=== PATIENT | female | born 1945 | race Hispanic/Latino ===

== ENCOUNTER → 2019-10-20 | Day surgery (SDC) | payer MEDICARE ==
[~2019-10-20] MED LIST: ACETAMINOPHEN650 M1 PO; ACIDOPHILUS1 EAC1 PO; ALENDRONATE SOD70 MG PO; BOOST BREEZE237 ML PO; CEFAZOLIN SOD 1 GM/NS 50ML 50 ML IV ONE; DEXAMETHASONE SOD PHOS INJ 4 MG/ML VIAL ONE; DICYCLOMINE HCL20 MG PO; DOCUSATE SODIU100 MG PO; FENTANYL CITRATE/PF 100MCG/2 ML INJ ONE; GLUCAGON HCL1 MG IM; GLUCOSE15 GM/59 M PO; HUMALOG100 UNIT/3 SC; HYDRALAZIN20 MG/1 ML IV; HYDRALAZINE HCL 20 MG/ML VIAL ONE; HYDROMORPHONE 1MG/1ML INJ ONE; IOPAMIDOL 300MG/ML 50ML INFUS..BTL IV ONE; LEVOTHYROXINE50 MCG PO; LIDOCAINE HCL 2% LOCAL INJ 5 ML SDV VIAL INJ ONE; LIPIDS IV; LOPERAMIDE2 MG PO; MAGNESIUM4 MEQ/1 M1 IV; MORPHINE S30 MG/30 M IVP; MORPHINE SULFATE INJ 4 MG/ML INJ 1ML ONE; NORCO 5-325 TA1 EACH PO; ONDANSETRON HCL INJ 2MG/ML 2ML 2 MG/ML VIAL ONE; ONDANSETRON2 MG/1 ML IV; POTASSIUM CHLO10 ME1 PO; PROPOFOL IV EMULSION 10 MG/ML 20 ML VIAL ONE; SEVOFLURANE INHAL SOLN 250 ML PEN BTL ONE; SIMETHICONE80 MG PO; TPN IV; VITAMIN D250000 UNIT PO; ZOLPIDEM TARTRAT5 MG PO; ZOSYN 3.373.375 GM/5 IVP
--- OUTSIDE RECORDS SUMMARY | 2019-10-20 08:46 | XMS REPORT ---
Author Author [facility] Address Unknown Phone Unavailable Care Team Providers Care Dethistler Operator Name Role Phone Unavailable Unavailable Payers Payer Name Policy Type Policy Number Effective Date Expiration Date Problems This patient has no known problems. Allergies, Adverse Reactions, Alerts Allergy Name Allergy Type Status Severity Reaction(s) Onset Date Inactive Date Treating Clinician Comments No Known Allergies DA Active U 2011-10-12 00:00:00 Medications This patient has no known medications. Encounters Start Date/Time End Date/Time Encounter Type Admission Type Attending Clinicians Care Facility Care Department Encounter ID 2019-09-12 22:28:00 2019-09-12 16:33:00 Inpatient E [id number] Results Test Description Test Time Test Comments Text Results Atomic Results Result Comments BLADDER,BIOPSY 2019-06-27 14:53:00 RUN DATE: 06/27/19 [facility] PAGE 1 RUN TIME: 1453 Specimen Inquiry RUN USER: INTERFACE PATIENT: BURAK ERICKSON LOC: JACKIE U #: [id number] AGE/SX: 74/F ROOM: RE06/25/19REG DR: Noe Peterson : 43 BED: DIS: STATUS: [facility] TLOC: SPEC #: [id number] RECD: 06/25/19 STATUS: DAVID PERRY #: [id number] SHAMEKA: 06/25/19- [facility] DR: Noe Peterson ENTERED: 06/25/19 SP TYPE: BX BLAD OTHR DR: Tito Weir MD ORDERED: [place]OSS [place]: [place] [id number] [place] [address] [email or web address] Noe Peterson [address] [place] [address] [address] [place], [place] [id number] MARKERS: INTRADEPARTMENTAL CONSULT PROCEDURES: GROSS (06/27/19) TISSUES: 1. URINARY BLADDER, NOS - RIGHT LATERAL WALL 2. URINARY BLADDER, NOS - LEFT LATERAL WALL 3. URINARY BLADDER, NOS - POSTERIOR WALL CLINICAL HISTORY COLLECTION DATE: 06/25/19 COMMENT The sections of the first specimen demonstate subtle undulations and papillary change which lacks definitive features of papillary neoplasm. The urothelium is only a few cells thick and does not demonstate significant atypia. Clinical correlation is recommended. Intradepartmental consultation: RRB. FINAL DIAGNOSIS Right lateral bladder wall, biopsy: UROTHELIUM WITH SUBTLE PAPILLARY ARCHITECTURE (SEE COMMENT) Left lateral bladder wall, biopsy: MILD CHRONIC INFLAMMATION, BLADDER MUCOSA CONTINUED ON NEXT PAGE RUN DATE: 06/27/19 [facility] PAGE 2 RUN TIME: 3 Specimen Inquiry RUN USER: INTERFACE SPEC #: [id number] PATIENT: BURAK ERICKSON #[id number] (Continued) FINAL DIAGNOSIS (Continued) NEGATIVE FOR MALIGNANCY Posterior bladder wall, biopsy: MINIMAL CHRONIC INFLAMMATION, BLADDER MUCOSA ATTACHED SMOOTH MUSCLE WALL NEGATIVE FOR MALIGNANCY [facility]/leanne D [id number] MACROSCOPIC The first specimen is received in formalin, labeled with the patient's name, identified as "right lateral wall", and consists of two clarke biopsy tissue measuring 0.2 and 0.3 cm, submitted as (1). The second specimen is received in formalin, labeled with the patient's name, identified as "left lateral wall", and consists of two clarke biopsy tissue measuring 0.3 cm, submitted as (2). The third specimen is received in formalin, labeled with the patient's name, identified as "posterior wall", and consists of clarke biopsy tissue measuring 0.4 cm, submitted as (3). GROSS PERFORMED AT [facility] [address] [place] [address] (P)[phone] MICROSCOPIC All of the stains, including any controls performed, stain appropriately. MICROSCOPIC PERFORMED AT [facility] [address] [place] [address] (P)[phone] CONTINUED ON NEXT PAGE RUN DATE: 06/27/19 [facility] PAGE 3 RUN TIME: 1453 Specimen Inquiry RUN USER: INTERFACE SPEC #: [id number] PATIENT: BURAK ERICKSON #[id number] (Continued)--------- PERFORMING SITE Diagnosis performed at: [facility] [address] [facility], [place] [phone] Signed SIGNATURE ON FILE Babita Perez MD 06/27/19 1453 END OF REPORT BASIC METABOLIC PANEL 2019-06-19 13:43:00 SODIUM (test code=NA) 140 mmol/L 136-145 POTASSIUM (test code=K) 3.7 mmol/L 3.5-5.1 CHLORIDE (test code=CL) 105.0 mmol/L 98-107 CARBON DIOXIDE (test code=CO2) 28.0 mmol/L 21-32 ANION GAP (test code=GAP) 10.7 10-20 GLUCOSE (test code=GLU) 108 mg/dL 74-106 BLOOD UREA NITROGEN (test code=BUN) 30 mg/dL 7-18 GLOMERULAR FILTRATION RATE (test code=GFR) 40 mL/min >=60 Estimated GFR by using Modified MDRD formula.Chronic kidney disease is defined as either kidney damageor GFR <60 mL/min/1.73 m2 for >3 months. CREATININE (test code=CREAT) 1.30 mg/dL 0.55-1.02 Note change in reference range due to change in reagent. BUN/CREATININE RATIO (test code=BUN/CREA) 22.4 10-20 CALCIUM (test code=CA) 9.8 mg/dL 8.5-10.1 BASIC METABOLIC [id number] 13:32:00* Test Item Value Reference Range Comments SODIUM (test code=NA) 140 mmol/L 136-145 POTASSIUM (test code=K) 3.7 mmol/L 3.5-5.1 CHLORIDE (test code=CL) 105.0 mmol/L 98-107 CARBON DIOXIDE (test code=CO2) mmol/L 21-32 ANION GAP (test code=GAP) 10-20 GLUCOSE (test code=GLU) mg/dL 74-106 BLOOD UREA NITROGEN (test code=BUN) mg/dL 7-18 GLOMERULAR FILTRATION RATE (test code=GFR) mL/min >=60 CREATININE (test code=CREAT) mg/dL 0.55-1.02 BUN/CREATININE RATIO (test code=BUN/CREA) 10-20 CALCIUM (test code=CA) mg/dL 8.5-10.1 CBC W/AUTO [id number] 12:45:00* Test Item Value Reference Range Comments WHITE BLOOD CELL (test code=WBC) 7.7 K/mm3 4.5-12.5 RED BLOOD CELL (test code=RBC) 4.24 mill/mm3 3.7-5.2 HEMOGLOBIN (test code=HGB) 12.1 gram/dL 11.5-15.5 HEMATOCRIT (test code=HCT) 37.5 % 36.0-46.0 MEAN CELL VOLUME (test code=MCV) 88.4 fL 80-98 MEAN CELL HGB (test code=MCH) 28.5 picogram 27.0-33.0 MEAN CELL HGB CONCETRATION (test code=MCHC) 32.3 gram/dL 33.0-36.0 RED CELL DISTRIBUTION WIDTH (test code=RDW) 13.2 % 11.6-16.2 RED CELL DISTRIBUTION WIDTH SD (test code=RDW-SD) 42.8 fL 37.0-51.0 PLATELET COUNT (test code=PLT) 230 K/mm3 150-450 MEAN PLATELET VOLUME (test code=MPV) 10.7 fL 6.7-11.0 NEUTROPHIL % (test code=NT%) 68.8 % 39.0-69.0 IMMATURE GRANULOCYTE % (test code=IG%) 0.5 % 0.0-5.0 LYMPHOCYTE % (test code=LY%) 21.7 % 25.0-55.0 MONOCYTE % (test code=MO%) 6.1 % 0.0-10.0 EOSINOPHIL % (test code=EO%) 2.1 % 0.0-5.0 BASOPHIL % (test code=BA%) 0.8 % 0.0-1.0 NUCLEATED RBC % (test code=NRBC%) 0.0 % 0-0 NEUTROPHIL # (test code=NT#) 5.26 K/mm3 1.8-7.7 IMMATURE GRANULOCYTE # (test code=IG#) 0.04 x10 3/uL 0-0.03 LYMPHOCYTE # (test code=LY#) 1.66 K/mm3 1.0-5.0 MONOCYTE # (test code=MO#) 0.47 K/mm3 0-0.8 EOSINOPHIL # (test code=EO#) 0.16 K/mm3 0.0-0.5 BASOPHIL # (test code=BA#) 0.06 K/mm3 0.0-0.2 NUCLEATED RBC # (test code=NRBC#) 0.00 K/mm3 0.0-0.1 MANUAL DIFF REQUIRED (test code=MDIFF) NO - XR CHEST 2 [id number] 12:27:00 FAX: Tito Honeycutt MD [phone] Morse: O St: PRE FAX: Noe Steinberg [phone] Name: BURAK ERICKSON [facility] : 1945 Age/S: 74/F [address] [facility] Unit #: [id number] Loc: [place] [address] Phys: Noe Peterson Acct: [id number] Dis Date: Status: PRE SDC PHONE #: [phone] Exam Date: 06/19/2019 1203 FAX #: [phone] Reason: PRE OP EXAMS: CPT CODE: [id number] XR CHEST 2 V 48716 HISTORY: Preop. COMPARISON: October 03, 2011. AP and lateral view of the chest: No acute infiltrates, effusion or congestion. Lung scarring. Cardiac and mediastinal silhouette are normal. Axillary clips on the right. IMPRESSION: No acute infiltrates, effusion or congestion. at 1227 Reported and signed by: Roger Mcdonald M.D. CC: Tito Weir M.D.; Noe Peterson M.D. Technologist: RUDDY Fletcher) Trnscrd Date/Time/By: 06/19/2019 (9416) : By: [email or web address] Orig Print D/T: S: 06/19/2019 (7590) PAGE 1 Signed Report
--- OUTSIDE RECORDS SUMMARY | 2019-10-20 08:46 | XMS REPORT ---
Author Organization Unknown Address [address] [place] [id number] Phone [phone] Care Team Providers Care Core Finisher Name Role Phone FRANKLIN "MARILYN WEIR MD 3 [phone] Allergies Code Code System Name Reaction Severity Status Onset NKDA Medications Name Status Start Date Stop Date acetaminophen 300 mg-codeine 30 mg tablet Completed 03/05/2017 alendronate 70 mg tablet Active Not available amoxicillin 500 mg capsule Completed 10/03/2016 amoxicillin 875 mg-potassium clavulanate 125 mg tablet Completed 07/05/2017 azithromycin 250 mg tablet Completed 07/12/2017 azithromycin 500 mg tablet Take 1 tablet every day by oral route for 7 days. Completed 07/12/2017 baclofen 20 mg tablet Completed 10/03/2016 benazepril 10 mg tablet Completed 02/01/2017 benazepril 10 mg-hydrochlorothiazide 12.5 mg tablet Active Not available calcitriol 0.25 mcg capsule Take 1 capsule every day by oral route for 90 days. Active Not available ceftriaxone 500 mg solution for injection Take 250 mg by injection route. Completed 06/01/2017 celecoxib 200 mg capsule Active Not available chlorhexidine gluconate 0.12 % mouthwash Completed 10/31/2016 ciprofloxacin 500 mg tablet Completed 01/04/2017 colchicine 0.6 mg tablet take 2 on first day then one daily Active Not available Combivent Respimat 20 mcg-100 mcg/actuation solution for inhalation Completed 07/05/2017 Depo-Medrol 80 mg/mL suspension for injection injected 1 ml. deep IM, once, as a single dose Completed 08/06/2017 diazepam 2 mg tablet Completed 10/31/2016 diphenoxylate-atropine 2.5 mg-0.025 mg tablet Active Not available ferrous sulfate 325 mg (65 mg iron) tablet Take 1 tablet every day by oral route for 90 days. Active Not available hydrocodone 10 mg-acetaminophen 325 mg tablet Active Not available levothyroxine 50 mcg tablet Active Not available lidocaine-prilocaine 2.5 %-2.5 % topical cream Active Not available Medrol (Markel) 4 mg tablets in a dose pack take as directed on the pack; do not skip any doses; take until all finished. Active Not available montelukast 10 mg tablet Completed 07/05/2017 mupirocin 2 % topical ointment Completed 01/31/2018 nitrofurantoin monohydrate/macrocrystals 100 mg capsule Completed 01/04/2017 Pyridium 200 mg tablet Take 1 tablet twice a day by oral route as needed for 3 days. Completed 06/01/2017 rosuvastatin 20 mg tablet Active Not available sulfamethoxazole 800 mg-trimethoprim 160 mg tablet Completed 01/04/2017 trazodone 50 mg tablet Completed 10/31/2016 triamcinolone acetonide 0.1 % lotion Completed 02/01/2017 valacyclovir 500 mg tablet Completed 02/01/2017 Vitamin D2 50,000 unit capsule Take 1 capsule every week by oral route for 90 days. Active Not available Xifaxan 550 mg tablet Take 1 tablet twice a day by oral route for 14 days. 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 History Atrophic Vaginitis Unknown 09/03/2015 History Osteoarthritis of Knee Active 09/03/2015 History Pain in Left Knee Active 09/03/2015 History Mononeuropathy Active 09/28/2015 History Subacute and Chronic Vaginitis Unknown 09/28/2015 History Urticaria Unknown 09/28/2015 History Neck Pain Unknown 09/28/2015 History Tension-type Headache Active 04/17/2016 History Disorder of Bone Active 04/17/2016 History 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 (Scheduling) [address] [place] [address] (Work Place) 02/01/2017 MAMMO, Screening, Bilateral [facility] [address] [place] [address] (Work Place) 05/14/2017 [place], [facility] [address] [place] [address] (Work Place) 05/16/2017 [place], [facility] [address] [place] [address] (Work Place) 06/01/2017 XR, Shoulder [facility] [address] [place] [address] (Work Place) 07/05/2017 XR, Chest, 2 View Information not available Notes: 05/10/2016: L Carotid Endarterectomy; Surgery Date: 2002 Ventral Hernia x 3; Surgery Date: 2009 Ventral Hernia (complication from previous surgery); Surgery Date: 2009 Rupture Colon (Spontaneous), required surgery then as well; Surgery Date: 2006 Vaginal Ca. S/P Surgery, Radiation and Chemo; Surgery Date: 1994 Lab Results Date Name Specimen Result Interpretation Description Value Range Status Address 12/07/2017 TSH, Serum or Plasma Normal Tsh 3.41 mIU/L 0.40-4.50 mIU/L [facility]: [address] [place] [address] 12/07/2017 Vitamin D, 25-Hydroxy, Total, Serum Low Vitamin D,25-Oh,total,ia 23 NG/mL 30-100 NG/mL Final [facility]: [address] [place] [address] 12/07/2017 T4, Free, Serum Normal T4, Free 1.4 NG/dL 0.8-1.8 NG/dL Final [facility]: [address] 12/07/2017 CBC W/ Auto Diff Normal White Blood Cell Count 8.1 thousand/uL 3.8-10.8 thousand/uL [facility]: [address] [place] [address] Normal Red Blood Cell Count 3.94 million/uL 3.80-5.10 million/uL [facility]: [address] Anguiano, Brian Low Hemoglobin 11.2 g/dL 11.7-15.5 g/dL Final [facility]: [address] Brian Ortiz Low Hematocrit 34.5 % 35.0-45.0 % Final [facility]: [address] Brian Ortiz Normal Mcv 87.6 fL 80.0-100.0 fL Final [facility]: [address] Je[address] Anguiano Torres Normal Mch 28.4 pg 27.0-33.0 pg Final [facility]: [address] Anguiano, [place] Normal Mchc 32.5 g/dL 32.0-36.0 g/dL Final [facility]: [address]055 Brian Ortiz Normal Rdw 12.7 % 11.0-15.0 % Final [facility]: [address]055 Brian Ortiz Normal Platelet Count 265 thousand/uL 140-400 thousand/uL Final [facility]: [address]055 Brian Ortiz Normal Mpv 10.7 fL 7.5-12.5 fL Final [facility]: [address]055 Brian Ortiz Normal Absolute Neutrophils 5711 cells/uL 7917-7098 cells/uL Final [facility]: [address]055 Brian Ortiz Normal Absolute Lymphocytes 1742 cells/uL 850-3900 cells/uL Final [facility]: [address] Jeannie Anguiano Torres Normal Absolute Monocytes 462 cells/uL 200-950 cells/uL Final [facility]: [address]055 Brian Ortiz Normal Absolute Eosinophils 138 cells/uL 15-500 cells/uL Final [facility]: [address] Jeannie Anguiano Torres Normal Absolute Basophils 49 cells/uL 0-200 cells/uL Final [facility]: [address]055 Brian Ortiz Normal Neutrophils 70.5 % Final [facility]: [address]055 Brian Ortiz Normal Lymphocytes 21.5 % Final [facility]: [address] Je[address] Anguiano Torres Normal Monocytes 5.7 % Final [facility]: [address] Jeannie Anguiano Torres Normal Eosinophils 1.7 % Final [facility]: [address]055 Jeannie Anguiano [place] Normal Basophils 0.6 % Final [facility]: [address] 12/07/2017 Lipid Panel, Serum Normal Cholesterol, Total 172 mg/dL <200 mg/dL Final [facility]: [address] Low HDL Cholesterol 48 mg/dL >50 mg/dL Final [facility]: [address] High Triglycerides 161 mg/dL <150 mg/dL Final [facility]: [address] Normal LDL-cholesterol 97 mg/dL (calc) Final [facility]: [address] Normal Chol/hdlc Ratio 3.6 (calc) <5.0 (calc) Final [facility]: [address] Normal Non HDL Cholesterol 124 mg/dL (calc) <130 mg/dL (calc) Final [facility]: [address] 12/07/2017 Phosphorus, Serum or Plasma Normal Phosphate (as Phosphorus) 3.9 mg/dL 2.1-4.3 mg/dL Final [facility]: [address] 12/07/2017 Magnesium, Serum or Plasma Low Magnesium 1.1 mg/dL 1.5-2.5 mg/dL Final [facility]: [address] 12/07/2017 CMP, Serum or Plasma Low eGFR Non-afr. [place] 47 mL/min/1.73m2 > or=60 mL/min/1.73m2 Final [facility]: [address] Low eGFR 55 mL/min/1.73m2 > or=60 mL/min/1.73m2 Final [facility]: [address] Normal BUN/creatinine Ratio 22 (calc) 6-22 (calc) Final [facility]: [address] Normal Sodium 140 mmol/L 135-146 mmol/L Final [facility]: [address] Normal Potassium 3.9 mmol/L 3.5-5.3 mmol/L Final [facility]: [address] Normal Chloride 106 mmol/L 98-110 mmol/L Final [facility]: [address] Normal Carbon Dioxide 23 mmol/L 20-31 mmol/L Final [facility]: [address] Low Calcium 8.1 mg/dL 8.6-10.4 mg/dL Final [facility]: [address] Normal Protein, Total 6.3 g/dL 6.1-8.1 g/dL Final [facility]: [address] Normal Albumin 3.7 g/dL 3.6-5.1 g/dL Final [facility]: [address] Normal Globulin 2.6 g/dL (calc) 1.9-3.7 g/dL (calc) Final [facility]: [address] Normal Albumin/globulin Ratio 1.4 (calc) 1.0-2.5 (calc) Final [facility]: [address] Normal Bilirubin, Total 0.5 mg/dL 0.2-1.2 mg/dL Final [facility]: [address] Normal Alkaline Phosphatase 66 U/L 33-130 U/L Final [facility]: [address] Normal Ast 13 U/L 10-35 U/L Final [facility]: [address] Normal Alt 9 U/L 6-29 U/L Final [facility]: [address] Normal Glucose 96 mg/dL 65-99 mg/dL Final [facility]: [address] Normal Urea Nitrogen (BUN) 25 mg/dL 7-25 mg/dL Final [facility]: [address] High Creatinine 1.15 mg/dL 0.60-0.93 mg/dL Final [facility]: [address] 12/07/2017 PTH (Parathyroid Hormone), Intact, Serum or Plasma High Parathyroid Hormone, Intact 190 pg/mL 14-64 pg/mL Final [facility]: 55 Je[address] 09/03/2017 Vitamin D, 25-Hydroxy, Total, Serum Low Vitamin D,25-Oh,total,ia 14 NG/mL 30-100 NG/mL Final [facility]: [address] 09/03/2017 Lipid Panel, Serum Normal Cholesterol, Total 173 mg/dL <200 mg/dL Final [facility]: [address] Normal HDL Cholesterol 51 mg/dL >50 mg/dL Final [facility]: [address] High Triglycerides 167 mg/dL <150 mg/dL Final [facility]: [address] Normal LDL-cholesterol 95 mg/dL (calc) Final [facility]: [address] Normal Chol/hdlc Ratio 3.4 (calc) <5.0 (calc) Final [facility]: [address] Normal Non HDL Cholesterol 122 mg/dL (calc) <130 mg/dL (calc) Final [facility]: [address] 09/03/2017 CMP, Serum or Plasma Normal Glucose 92 mg/dL 65-99 mg/dL Final [facility]: [address] Normal Urea Nitrogen (BUN) 22 mg/dL 7-25 mg/dL Final [facility]: [address] High Creatinine 1.01 mg/dL 0.60-0.93 mg/dL Final [facility]: [address] Low eGFR Non-afr. [place] 55 mL/min/1.73m2 > or=60 mL/min/1.73m2 Final [facility]: [address] Normal eGFR 64 mL/min/1.73m2 > or=60 mL/min/1.73m2 Final [facility]: [address] Normal BUN/creatinine Ratio 22 (calc) 6-22 (calc) Final [facility]: [address] Normal Sodium 142 mmol/L 135-146 mmol/L Final [facility]: [address] Normal Potassium 4.1 mmol/L 3.5-5.3 mmol/L Final [facility]: [address]ar[address] [place] [address] Normal Chloride 107 mmol/L 98-110 mmol/L Final [facility]: [address] Navarre[address] [place] [address] Normal Carbon Dioxide 27 mmol/L 20-31 mmol/L Final [facility]: [address] Vanessa [address] Normal Calcium 8.7 mg/dL 8.6-10.4 mg/dL Final [facility]: [address] Normal Protein, Total 6.1 g/dL 6.1-8.1 g/dL Final [facility]: [address] Normal Albumin 3.7 g/dL 3.6-5.1 g/dL Final [facility]: 55 [address] Normal Globulin 2.4 g/dL (calc) 1.9-3.7 g/dL (calc) Final [facility]: [address] Normal Albumin/globulin Ratio 1.5 (calc) 1.0-2.5 (calc) Final [facility]: 55 [address] Normal Bilirubin, Total 0.7 mg/dL 0.2-1.2 mg/dL Final [facility]: [address] Vanessa [address] Normal Alkaline Phosphatase 61 U/L 33-130 U/L Final [facility]: 55 [address] Normal Ast 14 U/L 10-35 U/L Final [facility]: [address] Normal Alt 10 U/L 6-29 U/L Final [facility]: [address]ans[address] 09/03/2017 TSH, Serum or Plasma Normal Tsh 2.05 mIU/L 0.40-4.50 mIU/L Final [facility]: [address] Van[address] 09/03/2017 CBC W/ Auto Diff Normal White Blood Cell Count 6.2 thousand/uL 3.8-10.8 thousand/uL Final [facility]: 55 Je[address] dl [address] Low Red Blood Cell Count 3.63 million/uL 3.80-5.10 million/uL Final [facility]: [address] Anguiano, Brian Low Hemoglobin 10.6 g/dL 11.7-15.5 g/dL Final [facility]: [address] Brian Ortiz Low Hematocrit 33.1 % 35.0-45.0 % Final [facility]: [address]055 Brian Ortiz Normal Mcv 91.2 fL 80.0-100.0 fL Final [facility]: [address] Anugiano Torres Normal Mch 29.2 pg 27.0-33.0 pg Final [facility]: [address] Anguiano, [place] Normal Mchc 32.0 g/dL 32.0-36.0 g/dL Final [facility]: [address] Angu[address] Torres Normal Rdw 13.4 % 11.0-15.0 % Final [facility]: [address] Brian Ortiz Normal Platelet Count 231 thousand/uL 140-400 thousand/uL Final [facility]: [address] Je[address] Anguiano Torres Normal Mpv 10.6 fL 7.5-12.5 fL Final [facility]: [address]042 Jeannie Anguiano, Brian Normal Absolute Neutrophils 4309 cells/uL 3341-3897 cells/uL Final [facility]: [address]055 Brian Ortiz Normal Absolute Lymphocytes 1321 cells/uL 850-3900 cells/uL Final [facility]: [address] Je[address] Angu[address] Torres Normal Absolute Monocytes 397 cells/uL 200-950 cells/uL Final [facility]: [address] Je[address] Anguiano [place] Normal Absolute Eosinophils 136 cells/uL 15-500 cells/uL Final [facility]: 9076 Jeannie Anguiano, [place] Normal Absolute Basophils 37 cells/uL 0-200 cells/uL Final [facility]: [address] Je[address] Anguiano [place] Normal Neutrophils 69.5 % Final [facility]: [address] Angu[address] Torres Normal Lymphocytes 21.3 % Final [facility]: [address]055 Jeannie Anguiano, [place] Normal Monocytes 6.4 % Final [facility]: [address] Je[address] Anguiano [place] Normal Eosinophils 2.2 % Final [facility]: [address] Je[address] Anguiano [place] Normal Basophils 0.6 % Final [facility]: [address] Jeannie Anguiano, [place] 09/03/2017 T4, Free, Serum Normal T4, Free 1.3 NG/dL 0.8-1.8 NG/dL Final [facility] [address] [facility] PTH (Parathyroid Hormone), Intact, Serum or Plasma High Parathyroid Hormone, Intact 132 pg/mL 14-64 pg/mL Final [facility]: [address] dl Navarrete [facility], [place] 05/14/2017 Culture, Urine Culture, Urine, Routine Final [facility]: [address] Navar[address]te [address] [place] [address] 05/03/2017 CBC W/ Auto Diff Normal White Blood Cell Count 5.7 thousand/uL 3.8-10.8 thousand/uL Final [facility]: [address] Je[address] Vanessa [address] Low Red Blood Cell Count 3.73 million/uL 3.80-5.10 million/uL Final [facility]: [address] Low Hemoglobin 11.0 g/dL 11.7-15.5 g/dL Final [facility]: [address] Van[address] Low Hematocrit 33.1 % 35.0-45.0 % Final [facility]: [address] Navar[address]te [address] [place] [address] Normal Mcv 88.9 fL 80.0-100.0 fL Final [facility]: [address] Van[address] Normal Mch 29.6 pg 27.0-33.0 pg Final [facility]: [address] Van[address] Normal Mchc 33.3 g/dL 32.0-36.0 g/dL Final [facility]: [address] Van[address] Normal Rdw 14.4 % 11.0-15.0 % Final [facility]: 9055 [facility] Platelet Count 214 thousand/uL 140-400 thousand/uL Final [facility]: [address] Van[address] Normal Mpv 8.9 fL 7.5-12.5 fL Final [facility]: [address] Van[address] Normal Absolute Neutrophils 4138 cells/uL 6094-2727 cells/uL Final [facility]: [address] Vanessa [address] Normal Absolute Lymphocytes 1037 cells/uL 850-3900 cells/uL Final [facility]: [address] Jeannie Vanessa Landon Arline [place] Normal Absolute Monocytes 353 cells/uL 200-950 cells/uL Final [facility]: [address] Van[address] Normal Absolute Eosinophils 137 cells/uL 15-500 cells/uL Final [facility]: [address] Vanessa [address] Normal Absolute Basophils 34 cells/uL 0-200 cells/uL Final [facility]: [address] Vanessa [place] [address], [place] Normal Neutrophils 72.6 % Final [facility]: [address] Je[address] Vanessa [place] [address], [place] Normal Lymphocytes 18.2 % Final [facility]: [address] Je[address] Vanessa [place] [address], [place] Normal Monocytes 6.2 % Final [facility]: [address] [place] [address], [place] Normal Eosinophils 2.4 % Final [facility]: [address] Normal Basophils 0.6 % Final [facility]: [address] 05/03/2017 Lipid Panel, Serum Normal Cholesterol, Total 166 mg/dL 125- 200 mg/dL Final [facility]: [address] Low HDL Cholesterol 45 mg/dL > or=46 mg/dL Final [facility]: [address] High Triglycerides 150 mg/dL <150 mg/dL Final [facility]: [address] Normal LDL-cholesterol 91 mg/dL (calc) <130 mg/dL (calc) Final [facility]: [address] Normal Chol/hdlc Ratio 3.7 (calc) < or=5.0 (calc) Final [facility]: [address] Normal Non HDL Cholesterol 121 mg/dL (calc) Final [facility]: [address] 05/03/2017 T4, Total, Serum Normal T4 (Thyroxine), Total 8.4 mcg/dL 4.5-12.0 mcg/dL Final [facility]: [address] 05/03/2017 Rf (Rheumatoid Factor), Serum Normal Rheumatoid Factor 10 IU/mL <14 IU/mL Final [facility]: [address]055 [facility] TSH, Serum or Plasma Normal Tsh 2.24 mIU/L 0.40-4.50 mIU/L Final [facility]: 9055 [facility] 05/03/2017 CMP, Serum or Plasma Normal Glucose 98 mg/dL 65-99 mg/dL Final [facility]: [address] Normal Urea Nitrogen (BUN) 19 mg/dL 7-25 mg/dL Final [facility]: [address] Van[address] High Creatinine 1.03 mg/dL 0.60-0.93 mg/dL Final [facility]: [address] Van[address] Low eGFR Non-afr. [place] 54 mL/min/1.73m2 > or=60 mL/min/1.73m2 Final [facility]: [address] Normal eGFR 62 mL/min/1.73m2 > or=60 mL/min/1.73m2 Final [facility]: [address] Van[address] Normal BUN/creatinine Ratio 18 (calc) 6-22 (calc) Final [facility]: [address] Normal Sodium 140 mmol/L 135-146 mmol/L Final [facility]: [address] Van[address] Normal Potassium 4.1 mmol/L 3.5-5.3 mmol/L Final [facility]: [address] Vanessa [address] Normal Chloride 104 mmol/L 98-110 mmol/L Final [facility]: [address] Vanessa [address] Normal Carbon Dioxide 27 mmol/L 20-31 mmol/L Final [facility]: [address] Normal Calcium 9.1 mg/dL 8.6-10.4 mg/dL Final [facility]: [address] Van[address] Normal Protein, Total 6.1 g/dL 6.1-8.1 g/dL Final [facility]: [address] Normal Albumin 3.7 g/dL 3.6-5.1 g/dL Final [facility]: [address] Normal Globulin 2.4 g/dL (calc) 1.9-3.7 g/dL (calc) Final [facility]: [address] Normal Albumin/globulin Ratio 1.5 (calc) 1.0-2.5 (calc) Final [facility]: [address] Normal Bilirubin, Total 0.4 mg/dL 0.2-1.2 mg/dL Final [facility]: [address] Normal Alkaline Phosphatase 75 U/L 33-130 U/L Final [facility]: [address] Normal Ast 15 U/L 10-35 U/L Final [facility]: [address] Normal Alt 11 U/L 6-29 U/L Final [facility]: [address] [place] [address], [place] 05/03/2017 GIANFRANCO (Antinuclear Antibodies) Igg, Ifa, Serum Normal GIANFRANCO Screen, Ifa negative negative Final [facility]: [address] [place] [address], [place] 03/07/2017 Culture, Urine Culture, Urine, Routine Final [facility]: [address] [address], [place] 03/05/2017 Culture, Urine Culture, Urine, Routine Final [facility] Lab: [address] [facility], [place] 02/01/2017 Lipid Panel, Serum Normal Cholesterol, Total 177 mg/dL 125- 200 mg/dL Final [facility]: [address] [facility], [place] Low HDL Cholesterol 43 mg/dL > or=46 mg/dL [facility] [facility] Lab: [address] [facility], [place] High Triglycerides 279 mg/dL <150 mg/dL Final [facility] Lab: [address] [facility], [place] Normal LDL-cholesterol 78 mg/dL (calc) <130 mg/dL (calc) Final [facility] Lab: [address] [facility], [place]ikel Normal Chol/hdlc Ratio 4.1 (calc) < or=5.0 (calc) Final [facility] Lab: [address] [facility], [place]ikel Normal Non HDL Cholesterol 134 mg/dL (calc) Final [facility] Lab: [address] [facility], Maikel 02/01/2017 CMP, Serum or Plasma Normal Glucose 98 mg/dL 65-99 mg/dL Final [facility] Lab: 70 [facility], [place] High Urea Nitrogen (BUN) 26 mg/dL 7-25 mg/dL Final [facility] Lab: 70 [facility], [place] High Creatinine 1.16 mg/dL 0.60-0.93 mg/dL Final [facility] Lab: 70 [facility], [place] Low eGFR Non-afr. [place] 47 mL/min/1.73m2 > or=60 mL/min/1.73m2 Final [facility]: [address] [facility], [place] Low eGFR 54 mL/min/1.73m2 > or=60 mL/min/1.73m2 Final [facility] Lab: [address] [facility], [place] Normal BUN/creatinine Ratio 22 (calc) 6-22 (calc) Final [facility] Lab: 70 [facility], Maikel Normal Sodium 141 mmol/L 135-146 mmol/L Final [facility] Lab: 70 [facility], [place]ikel Normal Potassium 4.1 mmol/L 3.5-5.3 mmol/L Final [facility] Lab: 70 [facility], [place]ikel Normal Chloride 104 mmol/L 98-110 mmol/L Final [facility] Lab: 70 [facility], Maikel Normal Carbon Dioxide 26 mmol/L 20-31 mmol/L Final [facility] Lab: 70 [facility], [place] Low Calcium 8.4 mg/dL 8.6-10.4 mg/dL Final [facility] Lab: 70 [facility], [place]ikel Normal Protein, Total 6.4 g/dL 6.1-8.1 g/dL Final [facility] Lab: 70 [facility], [place] Normal Albumin 3.7 g/dL 3.6-5.1 g/dL Final [facility] Lab: 70 [facility], [place]ikel Normal Globulin 2.7 g/dL (calc) 1.9-3.7 g/dL (calc) Final [facility] Lab: [address] [place] [address], Maikel Normal Albumin/globulin Ratio 1.4 (calc) 1.0-2.5 (calc) Final [facility] Lab: 70 [facility], [place]ikel Normal Bilirubin, Total 0.6 mg/dL 0.2-1.2 mg/dL Final [facility] Lab: 70 [facility], [place] Normal Alkaline Phosphatase 63 U/L 33-130 U/L Final [facility] Lab: 70 [facility], [place] Normal Ast 14 U/L 10-35 U/L Final [facility] Lab: 70 [facility], [place]ikel Normal Alt 10 U/L 6-29 U/L Final [facility] Lab: 70 [facility], [place] 02/01/2017 CBC W/ Auto Diff Normal White Blood Cell Count 5.9 thousand/uL 3.8-10.8 thousand/uL Final [facility] Lab: 70 [facility], [place] Low Red Blood Cell Count 3.78 million/uL 3.80-5.10 million/uL Final [facility] Lab: [address] [place] [address], Maikel Low Hemoglobin 11.1 g/dL 11.7-15.5 g/dL Final [facility] Lab: [address] [place] [address], Maikel Low Hematocrit 32.9 % 35.0-45.0 % Final [facility] Lab: 70 [facility], [place] Normal Mcv 86.9 fL 80.0-100.[address] [facility] Lab: 70 [facility], [place] Normal Mch 29.2 pg 27.0-33.[address] [facility] Lab: [address] [place] [address], Maikel Normal Mchc 33.7 g/dL 32.0-36.0 g/dL Final [facility] Lab: 70 [facility], Maikel Normal Rdw 14.8 % 11.0-15.0 % Final [facility] Lab: 70 [facility], [place] Normal Platelet Count 205 thousand/uL 140-400 thousand/uL Final [facility] Lab: 70 [facility], [place] Normal Mpv 9.1 fL 7.5-12.[address] [facility] Lab: 70 [facility], [place] Normal Absolute Neutrophils 4160 cells/uL 0932-5077 cells/uL Final [facility] Lab: [address], [place] Normal Absolute Lymphocytes 1328 cells/uL 850-3900 cells/uL Final [facility] Lab: [address], [place] Normal Absolute Monocytes 277 cells/uL 200-950 cells/uL Final [facility] Lab: [address], [place] Normal Absolute Eosinophils 100 cells/uL 15-500 cells/uL Final [facility] Lab: [facility] [address], [place] Normal Absolute Basophils 35 cells/uL 0-200 cells/[address]L [facility] Lab: [facility] [address], [place] Normal Neutrophils 70.5 % Final [facility] Lab: [facility] [address], [place] Normal Lymphocytes 22.5 % Final [facility] Lab: [address] [place], [place] [address]t vd, Maikel Normal Monocytes 4.7 % Final [facility] Lab: [facility] [address], [place] Normal Eosinophils 1.7 % Final [facility] Lab: [address] [place] [address], Ma[place] Normal Basophils 0.6 % Final [facility] Lab: [address] [place] [address], Maikel 02/01/2017 T4, Total, Serum Normal T4 (Thyroxine), Total 8.4 mcg/dL 4.5-12.0 mcg/dL Final [facility] Lab: [address] [place] [address], Maikel 02/01/2017 TSH, Serum or Plasma Normal Tsh 2.43 mIU/L 0.40-4.50 mIU/L Final [facility] Lab: [address] [place] [address], Maikel 02/01/2017 HbA1C (Hemoglobin a1C), Blood Normal Hemoglobin a1C 5.5 % of total HGB <5.7 % of total HGB Final [facility] Lab: [address] [place] [address], Maikel 10/16/2016 Culture, Urine Culture, Urine, Routine Final [facility] Lab: [address] [place] [address], Maikel 10/03/2016 Lipid Panel, Serum Normal Cholesterol, Total 167 mg/dL 125- 200 mg/dL Final [facility] Lab: [address] [place] [address], Maikel Low HDL Cholesterol 45 mg/dL > or=46 mg/dL Final [facility] Lab: [address] [place] [address], [place] High Triglycerides 191 mg/dL <150 mg/dL Final [facility] Lab: [address] [place] [address], [place] Normal LDL-cholesterol 84 mg/dL (calc) <130 mg/dL (calc) Final [facility] Lab: [address], [place] Normal Chol/hdlc Ratio 3.7 (calc) < or=5.0 (calc) Final [facility] Lab: [address], [place] Normal Non HDL Cholesterol 122 mg/dL (calc) Final [facility]: [address] [facility], [place] 10/03/2016 CMP, Serum or Plasma High Glucose 100 mg/dL 65-99 mg/dL Final [facility] Lab: [address] [facility], [place] Normal Urea Nitrogen (BUN) 24 mg/dL 7-25 mg/dL Final [facility] Lab: 70 [facility], [place] High Creatinine 1.16 mg/dL 0.60-0.93 mg/dL Final [facility] Lab: [address] [facility], [place] Low eGFR Non-afr. [place] 47 mL/min/1.73m2 > or=60 mL/min/1.73m2 Final [facility] Lab: [address], [place] Low eGFR 54 mL/min/1.73m2 > or=60 mL/min/1.73m2 Final [facility] Lab: [address], [place] Normal BUN/creatinine Ratio 21 (calc) 6-22 (calc) Final [facility] Lab: [address], [place] Normal Sodium 141 mmol/L 135-146 mmol/L Final [facility] Lab: [address], [place] Low Potassium 3.3 mmol/L 3.5-5.3 mmol/L Final [facility] Lab: [address], [place] Normal Chloride 104 mmol/L 98-110 mmol/L Final [facility] Lab: [address], [place] Normal Carbon Dioxide 25 mmol/L 20-31 mmol/L Final [facility] Lab: [address], [place] Normal Calcium 8.7 mg/dL 8.6-10.4 mg/dL Final [facility] Lab: [address] [facility], [place] Normal Protein, Total 6.5 g/dL 6.1-8.1 g/dL Final [facility] Lab: [address], [place] Normal Albumin 3.8 g/dL 3.6-5.1 g/dL Final [facility] Lab: 70 [facility], [place] Normal Globulin 2.7 g/dL (calc) 1.9-3.7 g/dL (calc) Final [facility] Lab: 70 [facility], [place] Normal Albumin/globulin Ratio 1.4 (calc) 1.0-2.5 (calc) Final [facility] Lab: 70 [facility], [place] Normal Bilirubin, Total 0.6 mg/dL 0.2-1.2 mg/dL Final [facility] Lab: [address] [place] [address], [place] Normal Alkaline Phosphatase 75 U/L 33-130 U/L Final [facility] Lab: [address] [place] [address], [place] Normal Ast 13 U/L 10-35 U/L Final [facility] Lab: [address] [place] [address], Maikel Normal Alt 8 U/L 6-29 U/L Final [facility] Lab: [address] [place] [address], Maikel 10/03/2016 T4, Total, Serum Normal T4 (Thyroxine), Total 9.5 mcg/dL 4.5-12.0 mcg/dL Final [facility] Lab: [address] [place] [address], Maikel 10/03/2016 TSH, Serum or Plasma Normal Tsh 2.69 mIU/L 0.40-4.50 mIU/L Final [facility] Lab: [address] [place] [address], Maikel 10/03/2016 HbA1C (Hemoglobin a1C), Blood High Hemoglobin a1C 5.8 % of total HGB <5.7 % of total HGB Final [facility] Lab: [address] [place] [address], Maikel Urinalysis, Dipstick Color Color bloody [facility]: [address], [place] Color Appearance cloudy [facility]: [address], [place] Color Glucose 100 [facility]: [address] [facility] [address], [place] Color Bilirubin negative [facility]: [address], [place] Color Ketones negative [facility]: [address] [facility] [address], [place] Color Specific [place] 1.015 [facility] [place]: [address], [place] Color Blood large [facility] Torres: [address], [place] Color PH 6.0 [facility] Torres: [address], [place] Color Protein 300 [facility] Torres: [address], [place] Color Urobilinogen 1 [facility] Torres: [address], [place] Color Nitrites positive [facility] Torres: [address], [place] Color Leukocytes negative [facility] Torres: [address], [place] Urinalysis, Dipstick Color Glucose negative [facility]: [address], [place] Color Bilirubin small [facility] Torres: [address], [place] Color Ketones negative [facility]: [address], [place] Color Specific [place] 1.025 [facility]: [address], [place] Color Blood large [facility] Torres: [address], [place] Color PH 5.5 [facility] Torres: [address], [place] Color Protein 100 [facility] Torres: [address], [place] Color Urobilinogen 0.2 [facility] Torres: [address], [place] Color Nitrites negative [facility] Torres: [address], [place] Color Leukocytes trace [facility] Torres: [address], [place] Urinalysis, Dipstick Color Color viktoriya [facility] Torres: [address], [place] Color Appearance clear [facility] Torres: [address], [place] Color Glucose 250 [facility] Torres: [address], [place] Color Bilirubin moderate [facility] Torres: [address], [place] Color Ketones trace [facility]: [address], [place] Color Specific [place] 1.015 [facility]: [address], [place] Color Blood trace [facility] Torres: [address], [place] Color PH 5.0 [facility]: [address], [place] Color Protein 300 [facility]: [address] [facility] [address], [place] Color Urobilinogen 8 [facility]: [address] [address], [place] Color Nitrites positive [facility]: [address] [address], [place] Color Leukocytes large [facility]: [address] [place] [address], [place] Past Encounters 03/11/2018 Bursitis of Olecranon of Right Elbow; Gouty Arthropathy SABA Etienne: [address] [address], Ph. 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 01/04/2018 Pain in Left Knee; Vitamin D Deficiency; Hyperparathyroidism Due to Renal Insufficiency; Atherosclerosis TRISTON Chacko: [address] [address], Ph. 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 11/01/2017 Pain in Left Knee TRISTON Chacko: [address] [address], Ph. 10/04/2017 Pain in Left Knee; Disorder of Bone; Immunization; Cellulitis of Buttock RANDY ChackoP: [address] [facility] [address], [place] [address], Ph. 09/03/2017 Pain in Left Knee; Hypothyroidism; Immunization; Hypertensive Heart and Renal Disease; Chronic Kidney Disease Stage 3; Pure Hypercholesterolemia RANDY ChackoP: [address] [place] [address], [place] [address], Ph. 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 07/12/2017 Gout Franklin Weir MD: [address] [place] [address], [place] [address], Ph. 07/05/2017 Follow-up Visit; Acute Bronchitis; Pain in Left Knee; Body Mass Index 30+ - Obesity; Radiation Proctitis; Mononeuropathy; Pure Hypercholesterolemia; Hypothyroidism; History of Malignant Neoplasm of Vagina; Chronic Kidney Disease Stage 3; Hypertensive Heart and Renal Disease Franklin Weir MD: [address] [place] [address], Ph. 06/01/2017 Pain in Left Knee; Shoulder Joint Pain; Blood in Urine; Disorder of Bone; Fall on Same Level from Tripping RANDY ChackoP: [address] [address], Ph. 05/16/2017 Blood in Urine Franklin Weir MD: [address] [address], Ph. 05/14/2017 Dysuria; Acute Urinary Tract Infection; Blood in Urine TRISTON Chacko: [address] [facility], [place] [address], [place] [address], Ph. 05/03/2017 Pain in Left Knee; Hypertensive Heart and Renal Disease; Chronic Kidney Disease Stage 3; Hypothyroidism; Hand Joint Pain TRISTON Chacko: [place] [address] [address], Ph. 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 03/05/2017 Anemia; Hypertensive Heart and Renal Disease; Pain in Left Knee; Blood in Urine; Acute Urinary Tract Infection Nell Bernabe [employer]: [address] [address], Ph. 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 01/04/2017 Pain in Left Knee Nell Bernabe [employer]GRE[employer]ING [employer]: [address] [address], Ph. 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 10/31/2016 Hypertensive Heart and Renal Disease; Pain in Left Knee; Disorder of Bone; Cellulitis of Buttock Nell Bernabe [employer]: [address] [address], Ph. 10/16/2016 Blood in Urine Franklin Weir MD: [id number] [address], Ph. 10/03/2016 Pain in Left Knee; Hypothyroidism; Pure Hypercholesterolemia; Hypertensive Heart Disease; Family History of Diabetes Mellitus Nell BernabeRANDYP: [address] [facility], [address], [place] [address], Ph. 09/05/2016 Pain in Left Knee; Immunization Nell BernabeRANDYP: [address] [facility], [address], [place] [address], Ph. Social History Smoking Status Never Smoker Vaccine List Vaccine Type influenza, high dose seasonal 09/05/20160.5 mL 09/03/20170.5 mL influenza, seasonal, injectable 09/09/2014 08/12/2015 pneumococcal conjugate PCV 13 12/07/20170.5 mL Notes: decline's all vaccine's -02/28/2018-[place] Plan of Care Patient Instructions Increase PO fluids. Complete all antibiotics as prescribed. Call or RTC for worsening of symptoms or no improvement in 2-3 days. It was good to see you in the office today for your Medicare Annual Wellness Visit. You have been provided some information on healthy nutrition, including a diet rich in fruits and vegetables, minimizing simple carbohydrates, salt, and saturated fats. I want to encourage regular cardiovascular exercise such as walking at least 30 minutes daily, 5 times per week. Please remember to schedule any preventive health measures that we talked about today. You have also been provided education on fall prevention and community- based lifestyle interventions to help reduce health risks and promote healthy living in your [employer] folder. Screening Recommendations 1. Vaccines Pneumococcal: Influenza: Shingles: Tetanus: 2. Mammography Screenin. Colorectal cancer Screening Colonoscopy: Fecal Occult Blood: No screening necessary 4. Bone Mass Measurement: 5. Pap test / Pelvic Exam Screening: No screening necessary 6. Eye Exam Screenin. Cholesterol Screenin. Diabetes Screening: Apply hot compresses to the affected area. Complete all antibiotics as prescribed. Call or RTC for worsening of symptoms or no improvement after 48hrs of treatment. Reminders Provider Appointments None recorded. Lab None recorded. Referral None recorded. Procedures None recorded. Surgeries None recorded. Imaging None recorded. Vitals 03/11/2018 10:15AM Work In Same Day Height Weight BMI Blood Pressure 4 ft 9 in 153 lbs 33.1 kg/m2 131/79 mm[Hg] 02/28/2018 10:45AM Est Patient Height Weight BMI Blood Pressure 4 ft 9 in 148.6 lbs 32.2 kg/m2 122/70 mm[Hg] 01/31/2018 10:45AM Est Patient Height Weight BMI Blood Pressure 4 ft 9 in 144.4 lbs 31.2 kg/m2 (1) 126/92 mm[Hg] (2) 142/85 mm[Hg] 01/04/2018 11:15AM Est Patient Height Weight BMI Blood Pressure 4 ft 9 in 145.3 lbs 31.4 kg/m2 127/73 mm[Hg] 12/07/2017 10:15AM Est Patient Height Weight BMI Blood Pressure 4 ft 9 in 145 lbs 31.4 kg/m2 123/74 mm[Hg] 11/01/2017 10:00AM Est Patient Height Weight BMI Blood Pressure 4 ft 9 in 145.2 lbs 31.4 kg/m2 118/81 mm[Hg] 10/04/2017 10:00AM Est Patient Height Weight BMI Blood Pressure 4 ft 9 in 143.7 lbs 31.1 kg/m2 (1) 154/84 mm[Hg] (2) 151/83 mm[Hg] 09/03/2017 09:15AM Est Patient Height Weight BMI Blood Pressure 4 ft 9 in 146.6 lbs 31.7 kg/m2 (1) 164/97 mm[Hg] (2) 140/82 mm[Hg] 08/06/2017 08:45AM Est Patient Height Weight BMI Blood Pressure 4 ft 9 in 144 lbs 31.2 kg/m2 (1) 156/89 mm[Hg] (2) 138/76 mm[Hg] 07/12/2017 02:30PM Est Patient Height Weight BMI Blood Pressure 4 ft 9 in 146 lbs 31.6 kg/m2 102/67 mm[Hg] 07/05/2017 02:30PM TCM - High Risk Height Weight BMI Blood Pressure 4 ft 9 in 146.8 lbs 31.8 kg/m2 122/73 mm[Hg] 06/01/2017 09:00AM Est Patient Height Weight BMI Blood Pressure 4 ft 9 in 147.2 lbs 31.9 kg/m2 147/90 mm[Hg] 05/14/2017 01:45PM Work In Same Day Height Weight BMI Blood Pressure 4 ft 9 in 146 lbs 31.6 kg/m2 (1) 180/99 mm[Hg] (2) 174/103 mm[Hg] 05/03/2017 09:15AM Est Patient Height Weight BMI Blood Pressure 4 ft 9 in 147.6 lbs 31.9 kg/m2 145/88 mm[Hg] 04/02/2017 11:15AM Est Patient Height Weight BMI Blood Pressure 4 ft 9 in 145.6 lbs 31.5 kg/m2 142/85 mm[Hg] 03/05/2017 10:30AM Est Patient Height Weight BMI Blood Pressure 4 ft 9 in 147.2 lbs 31.9 kg/m2 140/84 mm[Hg] 02/01/2017 10:00AM LIBRARY DIRECTOR/EST CPX Height Weight BMI Blood Pressure 4 ft 9 in 142 lbs 30.7 kg/m2 136/79 mm[Hg] 01/04/2017 11:15AM Est Patient Height Weight BMI Blood Pressure 4 ft 9 in 146 lbs 31.6 kg/m2 142/83 mm[Hg] 12/05/2016 09:30AM Est Patient Height Weight BMI Blood Pressure 4 ft 9 in 148.2 lbs 32.1 kg/m2 140/89 mm[Hg] 10/31/2016 11:00AM Est Patient Height Weight BMI Blood Pressure 4 ft 9 in 146.4 lbs 31.7 kg/m2 130/73 mm[Hg] 10/16/2016 04:15PM Est Patient Height Weight BMI Blood Pressure 4 ft 9 in 149 lbs 32.2 kg/m2 130/75 mm[Hg] 10/03/2016 10:00AM Est Patient Height Weight BMI Blood Pressure 4 ft 9 in 146 lbs 31.6 kg/m2 (1) 149/90 mm[Hg] (2) 122/70 mm[Hg] 09/05/2016 11:00AM Est Patient Height Weight BMI Blood Pressure 4 ft 9 in 148.4 lbs 32.1 kg/m2 192/90 mm[Hg] 05/10/2016 Height Weight BMI Blood Pressure 4 ft 9 in 150 lbs 32.46 kg/m2 122/81 mm[Hg] 04/17/2016 Height Weight BMI Blood Pressure 4 ft 9 in 153 lbs 33.11 kg/m2 120/76 mm[Hg] 04/10/2016 Weight Blood Pressure 151.6 lbs 126/71 mm[Hg] 04/10/2016 Height BMI 4 ft 9 in 32.80 kg/m2 03/08/2016 Height Weight BMI Blood Pressure 4 ft 9 in 152 lbs 32.89 kg/m2 173/93 mm[Hg] 02/03/2016 Height Weight BMI Blood Pressure 4 ft 9 in 151.6 lbs 32.80 kg/m2 122/86 mm[Hg] 01/04/2016 Height Weight BMI Blood Pressure 4 ft 9 in 150 lbs 32.46 kg/m2 120/80 mm[Hg] 12/03/2015 Height Weight BMI Blood Pressure 4 ft 9 in 149.4 lbs 32.33 kg/m2 110/70 mm[Hg] 11/04/2015 Height Weight BMI Blood Pressure 4 ft 9 in 146.6 lbs 31.72 kg/m2 128/86 mm[Hg] 09/28/2015 Height Weight BMI Blood Pressure 4 ft 9 in 149.8 lbs 32.41 kg/m2 126/88 mm[Hg] 09/03/2015 Height Weight BMI Blood Pressure 4 ft 9 in 148.6 lbs 32.15 kg/m2 138/78 mm[Hg] 08/12/2015 Height Weight BMI 4 ft 9 in 150.4 lbs 32.54 kg/m2 08/12/2015 Blood Pressure 122/74 mm[Hg] 07/13/2015 Height Weight BMI Blood Pressure 4 ft 9 in 147.8 lbs 31.98 kg/m2 124/70 mm[Hg] 06/11/2015 Height Weight BMI Blood Pressure 4 ft 9 in 151.2 lbs 32.72 kg/m2 126/71 mm[Hg] 05/13/2015 Height Weight BMI Blood Pressure 4 ft 9 in 152.2 lbs 32.93 kg/m2 120/80 mm[Hg] 04/15/2015 Height Weight BMI Blood Pressure 4 ft 9 in 153.4 lbs 33.19 kg/m2 116/72 mm[Hg] 2015 Height Weight BMI 4 ft 9 in 150 lbs 32.46 kg/m2 2015 Blood Pressure 122/80 mm[Hg] 02/15/2015 Height Weight BMI Blood Pressure 4 ft 9 in 149.2 lbs 32.28 kg/m2 120/80 mm[Hg] 01/18/2015 Height Weight BMI Blood Pressure 4 ft 9 in 149 lbs 32.24 kg/m2 100/80 mm[Hg] 12/18/2014 Height Weight BMI Blood Pressure 4 ft 9 in 149.2 lbs 32.28 kg/m2 130/70 mm[Hg] 11/16/2014 Height Weight BMI Blood Pressure 4 ft 9 in 150 lbs 32.46 kg/m2 140/90 mm[Hg] 10/12/2014 Height Weight BMI Blood Pressure 4 ft 9 in 150.8 lbs 32.63 kg/m2 120/85 mm[Hg] 09/28/2014 Height Weight BMI Blood Pressure 4 ft 9 in 148 lbs 32.02 kg/m2 115/80 mm[Hg] 09/09/2014 Height Weight BMI Blood Pressure 4 ft 9 in 151.8 lbs 32.85 kg/m2 120/80 mm[Hg] 07/15/2014 Height Weight 4 ft 9 in 155 lbs 05/15/2014 Height Weight 4 ft 9 in 160.8 lbs 03/17/2014 Height 4 ft 9 in 03/17/2014 Weight 164.2 lbs 01/19/2014 Height Weight 4 ft 9 in 165.8 lbs 11/20/2013 Height Weight 4 ft 9 in 164.2 lbs 09/30/2013 Height Weight 4 ft 9 in 169 lbs 08/27/2013 Height Weight 4 ft 9 in 169.6 lbs 07/30/2013 Height Weight 4 ft 9 in 167.2 lbs 07/01/2013 Height Weight 4 ft 9 in 165 lbs 05/26/2013 Height Weight 4 ft 9 in 167.4 lbs 04/29/2013 Height Weight 4 ft 9 in 169.2 lbs 03/31/2013 Height Weight 4 ft 9 in 169.6 lbs 02/28/2013 Height Weight 4 ft 9 in 165.6 lbs 01/30/2013 Height Weight 4 ft 9 in 167.8 lbs 01/02/2013 Height Weight 4 ft 9 in 169 lbs 11/21/2012 Weight 168.8 lbs 11/21/2012 Height 4 ft 9 in 10/16/2012 Height Weight 4 ft 9 in 166.2 lbs 09/19/2012 Height Weight 4 ft 9 in 169.6 lbs 08/22/2012 Height Weight 4 ft 9 in 169.2 lbs 08/08/2012 Height Weight 4 ft 9 in 166.2 lbs 07/18/2012 Height Weight 4 ft 9 in 167.4 lbs 06/11/2012 Height Weight 4 ft 9 in 166.8 lbs 05/23/2012 Height Weight 4 ft 9 in 166.2 lbs 04/25/2012 Height Weight 4 ft 9 in 165 lbs 03/29/2012 Height Weight 4 ft 9 in 163.6 lbs 02/26/2012 Height Weight 4 ft 9 in 161.8 lbs 01/29/2012 Height Weight 4 ft 9.5 in 162 lbs 12/27/2011 Height Weight 4 ft 9.5 in 164 lbs 11/30/2011 Height Weight 4 ft 9.5 in 163.4 lbs 11/03/2011 Height Weight 4 ft 9.5 in 165.4 lbs 10/06/2011 Height Weight 4 ft 9.5 in 170 lbs 08/31/2011 Height Weight 4 ft 9.5 in 177.6 lbs 08/03/2011 Height Weight 4 ft 9.5 in 184 lbs 07/14/2011 Height Weight 4 ft 9.5 in 186.2 lbs 07/06/2011 Height Weight 4 ft 9.5 in 187.8 lbs 06/02/2011 Height Weight 4 ft 9.5 in 185.4 lbs 05/09/2011 Height Weight 4 ft 9.5 in 181.6 lbs 04/10/2011 Height Weight 4 ft 9.5 in 175.6 lbs 03/03/2011 Height Weight 4 ft 9.5 in 170.6 lbs 01/18/2011 Height Weight 4 ft 9.5 in 158 lbs 01/16/2011 Height Weight 4 ft 9.5 in 158 lbs 11/11/2010 Height Weight 4 ft 9.5 in 154.2 lbs 08/15/2010 Height Weight 4 ft 9.5 in 152 lbs 08/10/2010 Height Weight 4 ft 9.5 in 151.4 lbs 07/13/2010 Weight 152.4 lbs 07/13/2010 Height 4 ft 9.4 in 05/25/2010 Weight 155 lbs 01/04/2010 Weight 156 lbs 09/09/2009 Weight 151 lbs 07/23/2009 Weight 150 lbs 07/15/2009 Weight 153 lbs 03/16/2009 Height Weight 4 ft 9 in 158 lbs 03/12/2009 Height Weight 4 ft 9 in 158 lbs 02/25/2009 Height Weight 4 ft 9 in 162 lbs 10/23/2008 Weight 159.1 lbs 06/19/2008 Weight 162.3 lbs 04/17/2008 Weight 163.8 lbs 01/17/2008 Weight 159.5 lbs 01/10/2008 Weight 160.4 lbs 10/15/2007 Weight 153.9 lbs 07/16/2007 Weight 155 lbs 06/28/2007 Height Weight 4 ft 9 in 154.1 lbs 03/07/2007 Height Weight 4 ft 11 in 156.2 lbs 03/04/2007 Height Weight 4 ft 11 in 152 lbs 10/16/2006 Height Weight 4 ft 11 in 148.5 lbs 09/05/2006 Height Weight 4 ft 11 in 145 lbs 05/02/2006 Height Weight 4 ft 11 in 142 lbs 11/27/2005 Height Weight 4 ft 11 in 164 lbs 07/17/2005 Height Weight 4 ft 11 in 168 lbs 03/14/2005 Height Weight 4 ft 11 in 164 lbs
--- NOTE | 2019-10-20 11:24 | Diagnostic Imaging Report ---
EXAMINATION: CHEST 2 VIEWS INDICATION: Pre-operative COMPARISON: None FINDINGS: LINES/TUBES:Right IJ central venous catheter terminates in the superior vena cava. LUNGS:The lungs are well-inflated. No focal consolidation or pulmonary edema. PLEURA:No pleural effusion or pneumothorax. MEDIASTINUM:The cardiomediastinal silhouette appears normal in size and shape. BONES/SOFT TISSUES:No acute osseous injury. Surgical clips at the left neck and right axilla. ABDOMEN:No free air under the diaphragm. IMPRESSION: No focal pneumonia or pulmonary edema. Signed by: Phu Contreras MD on 10/20/2019 11:21 AM
[2019-10-20 14:35] VITALS: BP 171/88
--- NOTE | 2019-10-21 01:59 | Operative Report ---
DATE OF PROCEDURE: 10/20/2019 SURGEON: Tahir Bond MD SERVICE: Urology. PREOPERATIVE DIAGNOSES: 1. Suspected bilateral hydronephrosis and ureterolithiasis on a CT scan from another facility. 2. Large ventral hernia. 3. Urinary tract infection. 4. Microhematuria. POSTOPERATIVE DIAGNOSES: 1. Suspected bilateral hydronephrosis and ureterolithiasis on a CT scan from another facility. 2. Large ventral hernia. 3. Urinary tract infection. 4. Microhematuria. OPERATIONS PERFORMED: 1. Cystoscopy and left retrograde pyelograms under fluoroscopic control. 2. Left ureteroscopy. 3. Right retrograde pyelograms under fluoroscopic control. 4. Right ureteroscopy. 5. Placement of double-J stent 6-Djiboutian 22 cm long to the right side. 6. Interpretation of x-ray, radiologist not present. 7. Supervision of fluoroscopy, radiologist not present. 8. Pelvic exam under anesthesia. This is done with no connection at the evaluation. 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 ANESTHESIA: General. CLINICAL INDICATION NOTE: A 74-year-old patient, was brought from [facility] for assessment of the lower tract and upper tract. The patient had an extensive ventral hernia, has a history of bowel perforation that is treated conservatively. After medical clearance, she was brought for assessment. The planned procedure was discussed with the patient and family. DESCRIPTION OF PROCEDURE AND FINDING: After appropriate level of anesthesia was achieved, the patient was placed in lithotomy position, prepped and draped in a sterile fashion. Urethra inspected was unremarkable. The outlet was normal. Bladder mucosa demonstrates significant inflammatory changes all over the bladder with multiple bleeding points. Both ureteral orifices were identified. Left retrograde pyelograms were done first. No definitive intrinsic lesions were identified. Therefore, a wire was kept in place and a flexible ureteroscopy was done. No lesions were identified and the drainage was prompt. Following this, the right retrograde pyelograms demonstrating a dilation and some deformity of the upper collecting system. Therefore, a wire was kept in place and a flexible ureteroscopy was done. Again, no stones were identified. Due to the dilation of the upper collecting system, it was elected to place a double-J stent. A 22 cm 6-Djiboutian double-J stent was properly positioned. This was verified with x-ray and endoscopy. Following this, pelvic exam was done under anesthesia. No midline or adnexal masses were palpable. Following this, a 20-Djibout[place] Adair catheter was inserted and connected to collecting bag. The patient tolerated the procedure well, was transferred in satisfactory condition to recovery room. She will be followed at [place]. MD ELVIRA Michael/PIEDAD /[id number]
== END | disposition home or self-care (01) ==
LOC: OR 08:43
PROVIDERS: ATTEND Urology
DX: R31.29 Other microscopic hematuria (principal); K43.9 Ventral hernia without obstruction or gangrene; N39.0 Urinary tract infection, site not specified; Z01.810 Encounter for preprocedural cardiovascular examination; Z01.812 Encounter for preprocedural laboratory examination; Z01.811 Encounter for preprocedural respiratory examination; K44.9 Diaphragmatic hernia without obstruction or gangrene; M19.90 Unspecified osteoarthritis, unspecified site; E78.5 Hyperlipidemia, unspecified; Z85.41 Personal history of malignant neoplasm of cervix uteri
CPT/HCPCS: 52332; 52351; 71046; 74420; 93005; C1758; C2617; J0360; J0690; J1100; J1170; J2001; J2270; J2405; J2704; J3010; Q9967

== ENCOUNTER → 2020-01-15 | Day surgery (SDC) | payer MEDICARE ==
[2020-01-08 15:12] LABS: BASOPHILS % 0.5 % (0.0-1.0); EOSINOPHILS # (AUTO) 0.1 (0.0-0.4); EOSINOPHILS % 1.2 % (0.0-6.0); HEMATOCRIT 33.4 % (34.2-44.1); HEMOGLOBIN 10.7 g/dL (12.0-16.0); LYMPHOCYTES # (AUTO) 1.2 (1.0-3.2); LYMPHOCYTES % 15.4 % (18.0-39.1); MEAN CORPUSCULAR HEMOGLOBIN 27.5 pg (28-32); MEAN CORPUSCULAR VOLUME 85.9 fL (81-99); MONOCYTES # (AUTO) 0.6 (0.2-0.8); MONOCYTES % 8.1 % (4.4-11.3); NEUTROPHILS # (AUTO) 5.6 (2.1-6.9); NEUTROPHILS % 73.5 % (38.7-80.0); PLATELET COUNT 235 x10e3/uL (140-360); RED BLOOD COUNT 3.89 x10e6/uL (3.6-5.1); RED CELL DISTRIBUTION WIDTH 15.2 % (11.7-14.4)
[2020-01-08 15:31] LABS: ANION GAP 14.4 mmol/L (8-16); CALCIUM 9.3 mg/dL (8.4-10.2); CREATININE, SERUM 1.74 mg/dL (0.57-1.11); POTASSIUM 3.4 mmol/L (3.5-5.1)
[~2020-01-15] MED LIST changes: +ALLOPURINOL100 MG PO; +B&O 60MG R/S 60 MG SUPP PR ONE; +BENAZEPRIL-HCT1 EAC1 PO; +CALCITRIOL0.25 MCG PO; +CELEBREX100 MG PO; +CRESTOR10 MG PO; -FENTANYL CITRATE/PF 100MCG/2 ML INJ ONE; -HYDRALAZINE HCL 20 MG/ML VIAL ONE; -HYDROMORPHONE 1MG/1ML INJ ONE; +KETAMINE HCL INJ 50 MG/ML 10 ML VIAL ONE; +LOMOTIL TABLET1 EACH PO; +MAGNESIUM OXID400 MG PO; -MORPHINE SULFATE INJ 4 MG/ML INJ 1ML ONE; +NORCO 10-325 T1 EACH PO; +SCOPOLAMINE 1.5 MG PATCH ONE; +VIT D2 PO
[2020-01-15 15:21] VITALS: BP 156/85
--- NOTE | 2020-01-24 00:48 | Operative Report ---
DATE OF PROCEDURE: 01/15/2020 SURGEON: Tahir Bond MD SERVICE: Urology. PREOPERATIVE DIAGNOSES: 1. Right hydronephrosis. 2. Right J-stent. 3. History of hematuria. 4. Abdominal hernia, extensive. 5. Obesity. POSTOPERATIVE DIAGNOSES: 1. Right hydronephrosis. 2. Right J-stent. 3. History of hematuria. 4. Abdominal hernia, extensive. 5. Obesity. OPERATION PERFORMED: 1. Cystoscopy and evacuation of clots. 2. Left retrograde pyelograms under fluoroscopic control, not related to the contralateral sides. 3. Removal of stent from the right side. 4. Right retrograde pyelogram under fluoroscopic control. 5. Right ureteroscopy. 6. Supervision of x-ray, radiologist not present. 7. Supervision of fluoroscopy, radiologist not present. 8. Fulguration of bleeding point. 9. Pelvic exam under general anesthesia. SIFTER AND MILLER: None. ANESTHESIA: General. CLINICAL INDICATION NOTE: A 74-year-old patient with history of hydronephrosis on the right side with J-stent. She was brought for reassessment of both sides. She did have a history of gross hematuria. PROCEDURE AND FINDING: After the appropriate level of anesthesia was achieved, the patient was placed in lithotomy position, prepped and draped in a sterile fashion. Urethra inspected is unremarkable. Bladder outlet was normal. Bladder mucosa is normal. The double-J stent is protruding to the right ureteral orifice. Open-ended catheter inserted to the left and retrograde pyelogram demonstrating an unremarkable system. The right double-J stent was then removed, Open-ended catheter was inserted, minimal dilation of the system. A wire was kept in place and a flexible ureteroscopy was performed. No intrinsic lesions were identified. Following this, any visible were evacuated and any visible bleeding points were carefully coagulated. Pelvic exam was done under general anesthesia. No adnexal or midline masses were palpable. The patient tolerated the procedure well, was transferred to the recovery room. Tahir Bond MD TN/MODL /[id number]
== END | disposition home or self-care (01) ==
LOC: OR 10:41
PROVIDERS: ATTEND Urology
DX: N13.30 Unspecified hydronephrosis (principal); N20.0 Calculus of kidney; Z46.6 Encounter for fitting and adjustment of urinary device; K46.9 Unspecified abdominal hernia without obstruction or gangrene; E03.9 Hypothyroidism, unspecified; E66.9 Obesity, unspecified; I10 Essential (primary) hypertension; E78.5 Hyperlipidemia, unspecified; K44.9 Diaphragmatic hernia without obstruction or gangrene; G89.29 Other chronic pain; Z01.810 Encounter for preprocedural cardiovascular examination; Z01.812 Encounter for preprocedural laboratory examination
CPT/HCPCS: 36415; 52351; 74420; 80048; 85025; 93005; C1758; C1769; J0690; J1100; J2001; J2405; J2704; Q9967

== ENCOUNTER 2023-01-03 05:01 | Emergency (ER) | payer MEDICARE ==
[~2023-01-03] VITALS: Ht 149.9 cm; Wt 54.4 kg
[~2023-01-03 05:01] MED LIST changes: -B&O 60MG R/S 60 MG SUPP PR ONE; -CEFAZOLIN SOD 1 GM/NS 50ML 50 ML IV ONE; -DEXAMETHASONE SOD PHOS INJ 4 MG/ML VIAL ONE; -IOPAMIDOL 300MG/ML 50ML INFUS..BTL IV ONE; -KETAMINE HCL INJ 50 MG/ML 10 ML VIAL ONE; -LIDOCAINE HCL 2% LOCAL INJ 5 ML SDV VIAL INJ ONE; -ONDANSETRON HCL INJ 2MG/ML 2ML 2 MG/ML VIAL ONE; -PROPOFOL IV EMULSION 10 MG/ML 20 ML VIAL ONE; -SCOPOLAMINE 1.5 MG PATCH ONE; -SEVOFLURANE INHAL SOLN 250 ML PEN BTL ONE
[2023-01-03] MEDS ORDERED: SODIUM CHLORIDE 0.9% 1000ML 1,000 ML IV STA (05:06)
[2023-01-03 05:30] LABS: BASOPHILS % 0.3 % (0.0-1.0); EOSINOPHILS % 0.1 % (0.0-6.0); HEMATOCRIT 38.2 % (34.2-44.1); HEMOGLOBIN 12.1 g/dL (12.0-16.0); LYMPHOCYTES # (AUTO) 1.3 (1.0-3.2); LYMPHOCYTES % 11.8 % (18.0-39.1); MEAN CORPUSCULAR HEMOGLOBIN 29.1 pg (28-32); MEAN CORPUSCULAR HGB CONC 31.7 g/dL (31-35); MEAN CORPUSCULAR VOLUME 91.8 fL (81-99); MONOCYTES # (AUTO) 0.7 (0.2-0.8); MONOCYTES % 6.8 % (4.4-11.3); NEUTROPHILS # (AUTO) 8.6 (2.1-6.9); NEUTROPHILS % 79.8 % (38.7-80.0); PLATELET COUNT 250 x10e3/uL (140-360); RED BLOOD COUNT 4.16 x10e6/uL (3.6-5.1); RED CELL DISTRIBUTION WIDTH 15.6 % (11.7-14.4)
[2023-01-03 05:50] LABS: ALBUMIN 2.3 g/dL (3.5-5.0); ALBUMIN/GLOBULIN RATIO 0.7 (0.8-2.0); ANION GAP 12.7 mmol/L (8-16); CALCIUM 8.2 mg/dL (8.4-10.2); CREATININE, SERUM 1.27 mg/dL (0.57-1.11); POTASSIUM 2.7 mmol/L (3.5-5.1)
[2023-01-03] MEDS ORDERED: POTASSIUM CHLORIDE 10MEQ EA PO ONE (05:51)
[2023-01-03 05:56] LABS: CREATINE KINASE MB 0.7 ng/mL (0-5.0)
[2023-01-03] MEDS ORDERED: POTASSIUM CHLORIDE 20MEQ/100ML 100 ML IV SCH (06:00)
[2023-01-03] MEDS ORDERED: IOPAMIDOL 370 MG/ML 100 ML INFUS..BTL INJ ONE (06:08)
[2023-01-03] MEDS ORDERED: POTASSIUM CHLORIDE 20 MEQ TAB CR PO STA (08:36)
[2023-01-03 08:41] LABS: CLARITY,URINE CLEAR (CLEAR); COLOR,URINE YELLOW (YELLOW); KETONES,URINE NEGATIVE (NEGATIVE); LEUKOCYTE ESTERASE ,URINE NEGATIVE (NEGATIVE); NITRITE,URINE NEGATIVE (NEGATIVE); PROTEIN,URINE DIPSTICK NEGATIVE (NEGATIVE); URINE UROBILINOGEN 0.2 mg/dL (0.2 - 1)
[2023-01-03] MEDS ORDERED: POTASSIUM CHLORIDE 20MEQ/100ML 100 ML IV ONE (08:45)
[2023-01-03 08:53] LABS: BACTERIA,URINE MANY /HPF; EPITHELIAL CELLS,URINE MODERATE /LPF; RENAL EPITHELIAL CELLS,URINE FEW
[2023-01-03] MEDS ORDERED: CEFDINIR300 MG PO (09:01)
[2023-01-03] MEDS ORDERED: ONDANSETRON ODT4 MG PO (09:02)
[2023-01-03 09:42] VITALS: BP 174/92
== END 2023-01-03 09:41 | disposition home or self-care (01) ==
LOC: ER 05:06
DX: R10.33 Periumbilical pain (principal); N39.0 Urinary tract infection, site not specified; E87.6 Hypokalemia; N20.0 Calculus of kidney; R11.2 Nausea with vomiting, unspecified; K76.0 Fatty (change of) liver, not elsewhere classified; Z20.822 Contact with and (suspected) exposure to COVID-19; Z85.41 Personal history of malignant neoplasm of cervix uteri
CPT/HCPCS: 36415; 74177; 80053; 81001; 82550; 82553; 83605; 83690; 84484; 85025; 87040; 93005; 99284; J3480; J7030; Q9967; U0002